=== PATIENT | female | born 1975 | race Caucasian/White ===

== ENCOUNTER 2020-01-25 17:29 | Emergency (ER) | payer OTHER ==
[2020-01-25 17:40] VITALS: BP 130/67; PULSE 62; TEMP 98.7; BMI 44.2
== END 2020-01-25 19:48 | disposition home or self-care (01) ==
LOC: JERFT 17:29
DX: H00.011 Hordeolum externum right upper eyelid (principal)
CPT/HCPCS: 99283-25

== ENCOUNTER 2020-05-18 09:21 | Emergency (ER) | payer OTHER ==
[2020-05-18 09:43] VITALS: TEMP 97.8; BMI 43.0
[2020-05-18] MEDS ORDERED: ACETAMINOPHEN 325 MG TABLET (FP) PO ONE (10:46)
[2020-05-18] MEDS ORDERED: ACETAMINOPHEN 325 MG TABLET (FP) ONE (10:48)
[2020-05-18 11:15] LABS: BASO % 0.7 % (0-2.0); EOS % 2.4 % (0-4.5); HEMATOCRIT 34.6 % (32.4-45.2); HEMOGLOBIN 11.8 GM/dL (10.7-15.3); MCH 30.4 pg (25.7-33.7); MEAN CELL VOLUME 89.2 fl (80-96); MONO % 7.3 % (3.8-10.2); NEUT % 61.6 % (42.8-82.8); PLATELET COUNT 263 K/MM3 (134-434); RBC 3.88 M/mm3 (3.60-5.2); RDW 12.2 % (11.6-15.6); WHITE BLOOD COUNT 7.1 K/mm3 (4.0-10.0)
[2020-05-18 11:24] VITALS: BP 143/66; PULSE 72
[2020-05-18 11:24] LABS: CHLORIDE 107 mmol/L (98-107); POTASSIUM 4.1 mmol/L (3.5-5.1); SODIUM 142 mmol/L (136-145)
[2020-05-18 11:27] LABS: ALBUMIN 3.4 g/dl (3.4-5.0); ANION GAP 5 MMOL/L (8-16); BLOOD UREA NITROGEN 15.6 mg/dL (7-18); CALCIUM 9.1 mg/dL (8.5-10.1); CO2 29 mmol/L (21-32)
[2020-05-18 11:28] LABS: GLUCOSE,RANDOM 74 mg/dL (74-106)
[2020-05-18 11:30] LABS: CREATININE 0.6 mg/dL (0.55-1.3); SGOT/AST 13 U/L (15-37); SGPT/ALT 21 U/L (13-61)
[2020-05-18 11:31] LABS: BILIRUBIN,TOTAL 0.4 mg/dL (0.2-1)
[2020-05-18 11:33] LABS: ALK PHOS 67 U/L (45-117)
== END 2020-05-18 11:53 | disposition home or self-care (01) ==
LOC: JER 09:21
DX: M94.0 Chondrocostal junction syndrome [Tietze] (principal); G47.33 Obstructive sleep apnea (adult) (pediatric)
CPT/HCPCS: 36415; 71046-TC-FY; 80053; 82550; 84484; 84703; 85025; 93005; 93010; 99285-25

== ENCOUNTER 2023-08-14 10:46 | Emergency (ER) | payer OTHER ==
[2023-08-14 10:55] VITALS: BP 113/72; PULSE 69; RESP 18; TEMP 98; BMI 44.2
[2023-08-14] MEDS ORDERED: KETOROLAC TROMETHAMINE 30 MG/1 ML VIAL ONE (11:55)
[2023-08-14] MEDS ORDERED: CYCLOBENZAPRINE HCL 10 MG TABLET (FP) ONE (11:55)
[2023-08-14] MEDS ORDERED: LIDOCAINE 4% PATCH TP ONE (11:55)
[2023-08-14] MEDS: KETOROLAC TROMETHAMINE 30 MG/1 ML VIAL IM ONE (11:57)
[2023-08-14] MEDS: CYCLOBENZAPRINE HCL 10 MG TABLET (FP) PO ONE (11:57)
[2023-08-14] MEDS: LIDOCAINE 4% PATCH TP ONE (11:57)
[2023-08-14] MEDS ORDERED: LIDOCAINE PATCH REMOVAL MC ONE (22:00)
== END 2023-08-14 13:43 | disposition home or self-care (01) ==
LOC: JERFT 10:46
PROC: 3E0133Z Introduction of Anti-inflammatory into Subcutaneous Tissue, Percutaneous Approach (ICD-10-PCS; principal; 2023-08-14)
DX: S20.229A Contusion of unspecified back wall of thorax, initial encounter (principal); S40.011A Contusion of right shoulder, initial encounter; S40.012A Contusion of left shoulder, initial encounter; S40.021A Contusion of right upper arm, initial encounter; S40.022A Contusion of left upper arm, initial encounter; S80.11XA Contusion of right lower leg, initial encounter; S80.12XA Contusion of left lower leg, initial encounter; M54.50 Low back pain, unspecified; M79.10 Myalgia, unspecified site; Y04.2XXA Assault by strike against or bumped into by another person, initial encounter
CPT/HCPCS: 72070-TC-FY; 72100-TC-FY; 99284-25